=== PATIENT | male | born 1965 | race Caucasian/White ===

== ENCOUNTER → 2017-04-21 | Outpatient (CLI) | payer OTHER ==
[2017-04-21 14:14] LABS: CHLAM PCR NOT DETECTED (NOT DETECT)
[2017-04-21 14:37] LABS: ADD HIVPANEL? NO; HIV (1 AND 2) ANTIBODY NEGATIVE (NEGATIVE)
== END ==
LOC: CCC 10:59
DX: Z11.3 Encounter for screening for infections with a predominantly sexual mode of transmission (principal)
CPT/HCPCS: 36415; 86592; 86701; 87491; 87591

== ENCOUNTER → 2017-04-28 | Outpatient (CLI) | payer OTHER ==
[2017-04-28 09:01] LABS: ALANINE AMINOTRANSFERASE 23 U/L (21-72); ALBUMIN 3.7 g/dL (3.5-5.0); ALKALINE PHOSPHATASE 77 U/L (38-126); ANION GAP 9 (5-19); ASPARTATE AMINO TRANSFERASE 17 U/L (17-59); BILIRUBIN,DIRECT 0.3 mg/dL (0.0-0.4); BILIRUBIN,TOTAL 0.4 mg/dL (0.2-1.3); BLOOD UREA NITROGEN 18 mg/dL (7-20); CALCIUM 9.5 mg/dL (8.4-10.2); CARBON DIOXIDE 28 mmol/L (22-30); CHLORIDE 108 mmol/L (98-107); CHOLESTEROL 119.93 mg/dL (0-200); CREATININE RESULT 0.99 mg/dL (0.52-1.25); Direct HDL 30 mg/dL (>40); GLUCOSE 108 mg/dL (75-110); POTASSIUM 5.1 mmol/L (3.6-5.0); SODIUM 144.7 mmol/L (137-145); TOTAL PROTEIN 5.8 g/dL (6.3-8.2); TRIGLYCERIDES 157 mg/dL (<150)
[2017-04-28 09:12] LABS: DIRECT LDL 75 mg/dL (<100)
[2017-04-28 09:17] LABS: VLDL CHOLESTEROL 31.4 mg/dL (10-31)
== END ==
LOC: CCC 07:22
DX: I25.10 Atherosclerotic heart disease of native coronary artery without angina pectoris (principal); E78.5 Hyperlipidemia, unspecified; I10 Essential (primary) hypertension
CPT/HCPCS: 36415; 80053; 80061; 83036; 84443

== ENCOUNTER → 2017-06-02 | Outpatient (CLI) | payer OTHER | LOC: CCC 10:02 | DX: E87.5 Hyperkalemia (principal) | CPT/HCPCS: 36415; 84132 ==

== ENCOUNTER → 2019-03-21 | Outpatient (CLI) | payer OTHER ==
[2019-03-21 09:56] LABS: ABSOLUTE BASOPHILS # (AUTO) 0.1 10^3/uL (0.0-0.2); ABSOLUTE EOSINOPHILS # (AUTO) 0.1 10^3/uL (0.0-0.6); ABSOLUTE LYMPHOCYTES (AUTO) 2.6 10^3/uL (0.5-4.7); ABSOLUTE MONOCYTES (AUTO) 0.7 10^3/uL (0.1-1.4); ABSOLUTE NEUT (AUTO) 5.8 10^3/uL (1.7-8.2); BASOPHILS % (AUTO) 0.6 % (0-2); EOSINOPHILS % (AUTO) 1.6 % (0-6); HEMATOCRIT 46.8 % (37.9-51.0); HEMOGLOBIN 16.1 g/dL (13.5-17.0); LYMPHOCYTES % (AUTO) 28.1 % (13-45); MEAN CORPUSCULAR HEMOGLOBIN 30.7 pg (27.0-33.4); MEAN CORPUSCULAR HGB CONC 34.4 g/dL (32.0-36.0); MEAN CORPUSCULAR VOLUME 89 fl (80-97); PLATELET COUNT 251 10^3/uL (150-450); RED BLOOD COUNT 5.24 10^6/uL (4.35-5.55); RED CELL DISTRIBUTION WIDTH 13.3 % (11.5-14.0); SEGMENTED NEUTROPHILS % (AUTO) 62.7 % (42-78); TOTAL CELLS COUNTED % (AUTO) 100 %; WHITE BLOOD COUNT 9.2 10^3/uL (4.0-10.5)
[2019-03-21 10:20] LABS: ALANINE AMINOTRANSFERASE 26 U/L (21-72); ALBUMIN 4.1 g/dL (3.5-5.0); ALKALINE PHOSPHATASE 93 U/L (38-126); ANION GAP 9 (5-19); ASPARTATE AMINO TRANSFERASE 21 U/L (17-59); BILIRUBIN,DIRECT 0.2 mg/dL (0.0-0.4); BILIRUBIN,TOTAL 0.8 mg/dL (0.2-1.3); BLOOD UREA NITROGEN 16 mg/dL (7-20); CALCIUM 8.9 mg/dL (8.4-10.2); CARBON DIOXIDE 24 mmol/L (22-30); CHLORIDE 105 mmol/L (98-107); GLUCOSE 96 mg/dL (75-110); POTASSIUM 4.6 mmol/L (3.6-5.0); SODIUM 138.4 mmol/L (137-145); TOTAL PROTEIN 6.6 g/dL (6.3-8.2)
== END ==
LOC: CCC 08:45
DX: I10 Essential (primary) hypertension (principal); I25.10 Atherosclerotic heart disease of native coronary artery without angina pectoris; E66.9 Obesity, unspecified; E78.5 Hyperlipidemia, unspecified
CPT/HCPCS: 36415; 80053; 83036; 84153; 84443; 85025

== ENCOUNTER → 2019-04-23 | Outpatient (CLI) | payer OTHER ==
[2019-04-23 10:11] LABS: CHOLESTEROL 149.45 mg/dL (0-200); TRIGLYCERIDES 241 mg/dL (<150)
[2019-04-23 10:22] LABS: DIRECT LDL 106 mg/dL (<100)
[2019-04-23 10:27] LABS: VLDL CHOLESTEROL 48.2 mg/dL (10-31)
== END ==
LOC: OD 08:39
DX: I10 Essential (primary) hypertension (principal); I25.10 Atherosclerotic heart disease of native coronary artery without angina pectoris; E66.9 Obesity, unspecified; E78.5 Hyperlipidemia, unspecified
CPT/HCPCS: 36415; 80061

== ENCOUNTER → 2019-04-23 | Outpatient (CLI) | payer OTHER ==
[~2019-04-23] MED LIST: ALBUTEROL SULFATE 0.083% NEB 2.5 MG/3 ML AMPUL NEB ONE
--- NOTE | 2019-04-23 11:44 | Pulmonary Function Test ---
Pulmonary Function Test Date of Procedure:: 04/23/19 INDICATION:: Dyspnea Referring Provider: Dr. Curry Facility Engineer: Patricia Jennings UNIT AIDE TECH - Report Spirometry: Spirometry: pre-FVC: 4.24 L 90% post-FVC 4.10 L 87% pre-FEV:1 3.27 L 86% post-FEV1; 3.43 L 90% pre-FEV1/FVC % 77 post-FEV1/FVC% 84 predicted 81 dif-[id number]% 3.03 L 78% inuv-[id number]% 3.71 L 95% Impression: Mild obstructive ventilatory defect is implied by the decrease in flow at FEF 25-75% reasonable response to bronchodilator therapy.
== END ==
LOC: RT 07:37
PROVIDERS: ATTEND Internal Medicine
DX: I10 Essential (primary) hypertension (principal); Z72.0 Tobacco use; R06.83 Snoring; G47.33 Obstructive sleep apnea (adult) (pediatric)
CPT/HCPCS: 94060

== ENCOUNTER 2020-06-26 09:56 | Emergency (ER) | payer SELFPAY ==
--- NOTE | 2020-06-26 10:17 | ER Document Report ---
ED Medical Screen (RME) - General Chief Complaint: Urinary Frequency Stated Complaint: PAINFUL URINATION Time Seen by Provider: 06/26/20 10:10 [facility]: [facility] [Primary Care Provider] - Follow up as needed Mode of Arrival: Ambulatory Information source: Patient Notes: 55-year-old male presented to the emergency department chief complaint of dysuria. Patient reports when he urinates his penis swells and he does not think the urine is fully coming out. He denies any pain when he is not urinating. He states he went to the [facility]. They started him on Keflex and send a urine however the urine has come back clean and the culture was normal. He does not rule out the possibility of STIs. He is also concerned for possible genital warts. Denies any fever, nausea, vomiting or chills. I have greeted and performed a rapid initial assessment of this patient. A comprehensive ED assessment and evaluation of the patient, analysis of test results and completion of the medical decision making process will be conducted by additional ED providers. I have specifically instructed the patient or family members with the patient to immediately return to any nursing staff should anything change in the patient's condition or with their chief complaint. TRAVEL OUTSIDE OF THE [place] IN LAST 30 DAYS: No - Related Data Allergies/Adverse Reactions: No Known Allergies Allergy (Unverified 06/26/20 10:09) Home Medications: Metoprolol, lisinopril, ASA Past Medical History - Social History Chew tobacco use (# tins/day): No Drug Abuse: None Physical Exam - Vital signs Vitals: Temp Pulse Resp BP Pulse Ox 97.7 F 85 16 146/100 H 97 06/26/20 10:06/26/20 10:01 06/26/20 10:01 06/26/20 10:01 06/26/20 10:01 Course - Vital Signs Vital signs: Temp Pulse Resp BP Pulse Ox 97.7 F 85 16 146/100 H 97 06/26/20 10:01 06/26/20 10:01 06/26/20 10:01 06/26/20 10:01 06/26/20 10:01 Doctor's Discharge - Discharge Referrals: [facility] [Primary Care Provider] - Follow up as needed
[2020-06-26 10:43] LABS: APPEARANCE,URINE CLEAR; BILIRUBIN,URINE NEGATIVE (NEGATIVE); COLOR,URINE YELLOW; GLUCOSE, URINE NEGATIVE (NEGATIVE); KETONES,URINE NEGATIVE (NEGATIVE); LEUKOCYTE ESTERASE,URINE NEGATIVE (NEGATIVE); NITRITE,URINE NEGATIVE (NEGATIVE); PROTEIN,URINE NEGATIVE (NEGATIVE); URINE SPECIFIC GRAVITY 1.018; UROBILINOGEN,URINE NEGATIVE mg/dL (<2.0)
[2020-06-26 12:07] LABS: CHLAM PCR NOT DETECTED (NOT DETECT)
--- NOTE | 2020-06-26 12:47 | ER Document Report ---
ED GI/ - General Chief Complaint: Urinary Frequency Stated Complaint: PAINFUL URINATION Time Seen by Provider: 06/26/20 10:10 Primary Care Provider: [facility] [Primary Care Provider] - Follow up as needed Mode of Arrival: Ambulatory Information source: Patient Notes: This 55-year-old man presents to the emergency department with a complaint of dysuria. States that he was seen as an outpatient more than 2 weeks ago with similar symptoms. He was given a course of Cipro urine culture was performed. He notes that the culture did not grow anything. His symptoms does not improve while taking the Cipro. He has contacted the clinic and was told that he needed to come to the emergency department for further evaluation and treatment. The patient denies discharge or fever/chills. He has used Azo for the discomfort and burning without success. TRAVEL OUTSIDE OF THE [place] IN LAST 30 DAYS: No - Related Data Allergies/Adverse Reactions: No Known Allergies Allergy (Unverified 06/26/20 10:09) Home Medications: Metoprolol, lisinopril, ASA Past Medical History - General Information source: Patient - Social History Smoking Status: Current Every Day Smoker Chew tobacco use (# tins/day): No Drug Abuse: None Family History: Reviewed & Not Pertinent Review of Systems - Review of Systems Notes: Constitutional: Negative for fever. HENT: Negative for sore throat. Eyes: Negative for visual changes. Cardiovascular: Negative for chest pain. Respiratory: Negative for shortness of breath. Gastrointestinal: Negative for abdominal pain, vomiting or diarrhea. Genitourinary: See HPI Musculoskeletal: Negative for back pain. Skin: Negative for rash. Neurological: Negative for headaches, weakness or numbness. 10 point ROS negative except as marked above and in HPI. Physical Exam - Vital signs Vitals: Temp Pulse Resp BP Pulse Ox 97.7 F 85 16 146/100 H 97 06/26/20 10:01 06/26/20 10:01 06/26/20 10:01 06/26/20 10:01 06/26/20 10:01 - Notes Notes: PHYSICAL EXAMINATION: Physical Exam: General: Well-nourished well-developed 55-year-old man in no acute distress HEENT: NC/AT, pupils equal round and reactive to light, MM moist,nares clear, oropharynx clear, airway patent Neck: supple, no adenopathy, no masses. Good range of motion Lungs: clear, no wheezing, no rales no rhonchi CVS: Regular rate and rhythm no murmur gallop or rub Abdomen: Soft, active, nontender, no masses, no hepatosplenomegaly Ext: No edema, clubbing or cyanosis. Neuro: Alert and responsive, moving all 4 extremities on command, cranial nerves intact, no focal findings Skin: Intact no open lesions, no rash PSYCH: Normal mood, normal affect. Course - Re-evaluation Re-evalutation: 06/26/20 12:45 Discussed the findings of the urinalysis and also the findings of the PCR chlamydia/GC results with the patient. He appeared to be relieved reviewed the findings. He continues to complain of some dysuria. He is being treated empirically with doxycycline for any nonspecific urethritis. Is in agreement with this plan. - Vital Signs Vital signs: Temp Pulse Resp BP Pulse Ox 97.9 F 65 16 138/99 H 100 06/26/20 13:05 06/26/20 13:05 06/26/20 13:05 06/26/20 13:05 06/26/20 13:05 - Laboratory Laboratory results interpreted by me: 06/26/20 12:45 I have reviewed laboratory data and used this information for the treatment dec isions regarding the patient. Discharge - Discharge Clinical Impression: Nonspecific urethritis Condition: Good Disposition: HOME, SELF-CARE Instructions: Urethritis ([facility]) Additional Instructions: You are seen in emergency department today with complaint of burning when you urinate. And while your tests here in the ER today were negative, you are being treated nonspecific urethritis. Please take the medication as prescribed, drink plenty of fluids while taking these medications. Follow-up with your primary care doctor as needed. HOME CARE INSTRUCTIONS & INFORMATION: Thank you for choosing us for your medical needs. We hope you're satisfied with the care you received. After you leave, you must properly care for your problem and, at the same time, observe its progress. Any condition can change. Some illnesses can change rapidly over hours or days. If your condition worsens, return to the Emergency Department or see your physician promptly. ABOUT YOUR X-RAYS AND EKG'S: If you had an EKG or X-rays taken, they have been read by the Emergency Physician. The X-rays and EKG's will also be read by a Radiologist or Electrostatic Paint Operator within 24 hours. If discrepancies are noted, you will be notified by telephone. Please be certain the ED has a correct telephone number & address where you can be reached. Also, realize that some fractures or abnormalities do not show up on initial X-rays. If your symptoms continue, see your physician. ABOUT YOUR LABORATORY TEST: If you had laboratory tests, the results have been reviewed by the Emergency Physician. Some test results (for example cultures) may not be available for several days. You will be contacted if any test result shows you need additional treatment. Please be certain the ED has a correct telephone number and address where you can be reached. ABOUT YOUR MEDICATIONS: You will receive instructions on how to take your medicine on the prescription label you receive. Additional information may be provided by the Pharmacy. If you have questions afterwards, call the ED for clarification or further instructions. Some prescribed medications may cause drowsiness. Do not perform tasks such as driving a car or operating machinery without consulting your Pharmacist. If you feel you need a refill of pain medication, your condition will need re-evaluation. Please do not call for a refill of any medication. ABOUT YOUR SIGNATURE: Signature of this document acknowledges to followin. Understanding that you received emergency treatment and that you may be released before al medical problems are known or treated. Please be certain the ED has a correct phone number & address where you can be reached. 2. Acknowledgement that you will arrange for follow-up care as recommended. 3. Authorization for the Emergency Physician to provide information to your follow-up Physician in order to maximize your care. AT ANY TIME, IF YOUR SYMPTOMS CHANGE SIGNIFICANTLY OR WORSEN OR YOU DEVELOP NEW SYMPTOMS, RETURN TO THE EMERGENCY DEPARTMENT IMMEDIATELY FOR RE-EVALUATION. OUR GOAL IS TO PROVIDE EXCELLENT MEDICAL CARE! WE HOPE THAT WE HAVE MET YOUR EXPECTATIONS DURING YOUR EMERGENCY DEPARTMENT VISIT AND THAT YOU FEEL YOU HAVE RECEIVED EXCELLENT CARE! Prescriptions: Doxycycline Monohydrate 100 mg PO BID #20 capsule Referrals: [facility] [Primary Care Provider] - Follow up as needed
[2020-06-26 13:13] VITALS: BP 138/99
== END 2020-06-26 13:10 | disposition home or self-care (01) ==
LOC: ER 09:56
DX: N34.2 Other urethritis (principal); R30.0 Dysuria; F17.200 Nicotine dependence, unspecified, uncomplicated; Z79.82 Long term (current) use of aspirin
CPT/HCPCS: 81001; 87086; 87491; 87591; 99283

== ENCOUNTER → 2020-07-08 | Outpatient (CLI) | payer OTHER ==
[2020-07-08 08:39] LABS: ABSOLUTE BASOPHILS # (AUTO) 0.1 10^3/uL (0.0-0.2); ABSOLUTE EOSINOPHILS # (AUTO) 0.1 10^3/uL (0.0-0.6); ABSOLUTE MONOCYTES (AUTO) 0.6 10^3/uL (0.1-1.4); ABSOLUTE NEUT (AUTO) 5.6 10^3/uL (1.7-8.2); BASOPHILS % (AUTO) 1.1 % (0-2); EOSINOPHILS % (AUTO) 1.7 % (0-6); HEMATOCRIT 46.1 % (37.9-51.0); HEMOGLOBIN 15.9 g/dL (13.5-17.0); LYMPHOCYTES % (AUTO) 23.6 % (13-45); MEAN CORPUSCULAR HEMOGLOBIN 31.3 pg (27.0-33.4); MEAN CORPUSCULAR HGB CONC 34.5 g/dL (32.0-36.0); MEAN CORPUSCULAR VOLUME 91 fl (80-97); MONOCYTES % (AUTO) 7.5 % (3-13); PLATELET COUNT 246 10^3/uL (150-450); RED BLOOD COUNT 5.08 10^6/uL (4.35-5.55); RED CELL DISTRIBUTION WIDTH 13.2 % (11.5-14.0); SEGMENTED NEUTROPHILS % (AUTO) 66.1 % (42-78); TOTAL CELLS COUNTED % (AUTO) 100 %; WHITE BLOOD COUNT 8.4 10^3/uL (4.0-10.5)
[2020-07-08 09:06] LABS: ALBUMIN 3.8 g/dL (3.5-5.0); ALKALINE PHOSPHATASE 96 U/L (38-126); ANION GAP 8 (5-19); ASPARTATE AMINO TRANSFERASE 21 U/L (17-59); BILIRUBIN,TOTAL 0.5 mg/dL (0.2-1.3); BLOOD UREA NITROGEN 14 mg/dL (7-20); CARBON DIOXIDE 25 mmol/L (22-30); CHLORIDE 105 mmol/L (98-107); CHOLESTEROL 148.87 mg/dL (0-200); GLUCOSE 95 mg/dL (75-110); TOTAL PROTEIN 6.4 g/dL (6.3-8.2); TRIGLYCERIDES 159 mg/dL (<150)
[2020-07-08 09:17] LABS: DIRECT LDL 101 mg/dL (<100)
[2020-07-08 10:17] LABS: VLDL CHOLESTEROL 31.8 mg/dL (10-31)
--- NOTE | 2020-07-08 16:43 | EKG REPORT ---
SEVERITY:- NORMAL ECG - SINUS RHYTHM : Confirmed by: Norberto Arnold MD 08-Jul-2020 16:41:51
== END ==
LOC: CCC 07:07
PROVIDERS: ATTEND Internal Medicine
DX: E78.5 Hyperlipidemia, unspecified (principal); I10 Essential (primary) hypertension; I25.9 Chronic ischemic heart disease, unspecified; N34.1 Nonspecific urethritis
CPT/HCPCS: 36415; 80053; 80061; 83036; 84153; 84443; 85025; 93005; 93010